=== PATIENT | male | born 1965 | race Two or more races ===

== ENCOUNTER 2022-12-10 13:52 | Inpatient (IN) | payer OTHER ==
[2022-12-10 14:56] VITALS: BMI 23.7
[2022-12-10] MEDS ORDERED: BISMUTH SUBSALICYLATE 524 MG/30 ML PO PRN (17:11)
[2022-12-10] MEDS ORDERED: ACETAMINOPHEN 325 MG TABLET (FP) PO PRN (17:11)
[2022-12-10] MEDS ORDERED: IBUPROFEN 400 MG TABLET (FP) PO PRN (17:11)
[2022-12-10] MEDS ORDERED: MAG HYDROX/AL HYDROX/SIMETH 30 ML UNIT-DOSE CUP PO PRN (17:11)
[2022-12-10] MEDS ORDERED: guaiFENesin 600 MG TABLET.ER (FP) PO PRN (17:11)
[2022-12-10] MEDS ORDERED: MAGNESIUM HYDROX 2400MG/30ML ORAL SUSPENSION 30 ML CUP PO PRN (17:11)
[2022-12-10] MEDS ORDERED: POLYETHYLENE GLYCOL (HEALTHYLAX) 3350 17 GM PACKET PO PRN (17:11)
[2022-12-10] MEDS ORDERED: ONDANSETRON *ODT* 4 MG TABLET SL PRN (17:11)
[2022-12-10] MEDS ORDERED: IBUPROFEN 600 MG TABLET (FP) PO PRN (17:11)
[2022-12-10] MEDS ORDERED: DICYCLOMINE HCL 10 MG CAPSULE PO PRN (17:11)
[2022-12-10] MEDS ORDERED: hydrOXYzine PAMOATE 25 MG CAPSULE (FP) PO PRN (17:11)
[2022-12-10] MEDS ORDERED: LOPERAMIDE HCL 2 MG CAPSULE PO PRN (17:11)
[2022-12-10] MEDS ORDERED: BENZOCAINE/MENTHOL (CHLORASEPTIC ) LOZENGE MM PRN (17:11)
[2022-12-10] MEDS ORDERED: BENZONATATE 200 MG CAPSULE PO PRN (17:11)
[2022-12-10] MEDS: MELATONIN 5 MG TABLETS PO SCH (22:49)
[2022-12-10] MEDS: THIAMINE HCL 100 MG TABLET (FP) PO SCH (22:49)
[2022-12-11] MEDS: PRENATAL VITAMINS W/ FOLIC ACID TABLET (FP) PO SCH (10:29)
[2022-12-11] MEDS: METHOCARBAMOL 500 MG TABLET PO PRN ×2 (10:29→18:00)
[2022-12-11 12:10] LABS: POTASSIUM 5.4 mmol/L (3.5-5.1)
[2022-12-11 12:13] LABS: CALCIUM 8.9 mg/dL (8.5-10.1)
[2022-12-11 12:14] LABS: ALBUMIN 3.2 g/dl (3.4-5.0); BLOOD UREA NITROGEN 17.1 mg/dL (7-18)
[2022-12-11 12:19] LABS: HEMOGLOBIN 13.9 GM/dL (11.7-16.9); MCH 29.6 pg (25.7-33.7); MCHC 33.1 g/dl (32.0-35.9); MEAN CELL VOLUME 89.6 fl (80-96); MEAN PLT VOLUME 8.1 fl (7.5-11.1); PLATELET COUNT 266 10^3/uL (134-434); RBC 4.69 M/mm3 (4.00-5.60); RDW 14.1 % (11.9-15.9); WHITE BLOOD COUNT 4.7 K/mm3 (4.0-10.0)
[2022-12-11 12:21] LABS: BILIRUBIN,TOTAL 0.5 mg/dL (0.2-1); TOT PROT 6.2 g/dl (6.4-8.2)
[2022-12-11] MEDS ORDERED: SODIUM POLYSTYRENE SULFONATE 15 GM/60 ML BOTTLE PO ONE ×2 (15:05→17:00)
[2022-12-11] MEDS: THIAMINE HCL 100 MG TABLET (FP) PO SCH (22:32)
[2022-12-11] MEDS: MELATONIN 5 MG TABLETS PO SCH (22:32)
[2022-12-12 07:21] VITALS: RESP 16
[2022-12-12 09:33] VITALS: TEMP 98.1
[2022-12-12] MEDS: PRENATAL VITAMINS W/ FOLIC ACID TABLET (FP) PO SCH (10:31)
[2022-12-12 10:55] VITALS: BP 102/70; PULSE 65
== END 2022-12-12 12:48 | disposition home or self-care (01) | DRG 775 ==
LOC: YASAS 13:52 → Y6N 17:11 → UNDOADMIN 17:11
PROVIDERS: ADMIT Allergy & Immunology; ATTEND Surgery
PROC: HZ2ZZZZ Detoxification Services for Substance Abuse Treatment (ICD-10-PCS; principal; 2022-12-10)
DX: F10.20 Alcohol dependence, uncomplicated (principal); F17.210 Nicotine dependence, cigarettes, uncomplicated; E87.5 Hyperkalemia; K21.9 Gastro-esophageal reflux disease without esophagitis
CPT/HCPCS: 36415; 80053; 84132; 85027; 86780; 87635